=== PATIENT | female | born 1985 | race Caucasian/White ===

== ENCOUNTER 2017-02-17 05:40 | Day surgery (SDC) | payer OTHER ==
[~2017-02-17] VITALS: Ht 160 cm; Wt 72.1 kg
[2017-02-17] MEDS ORDERED: AMOX500C25 PO (06:54)
[2017-02-17] MEDS ORDERED: CLAR500T3 PO (06:57)
[2017-02-17] MEDS ORDERED: METR250T2 PO (06:58)
[2017-02-17] MEDS ORDERED: LORA-476 PO (06:59)
[2017-02-17] MEDS ORDERED: fentaNYL 0.05 MG/ML VIAL ONE (07:32)
[2017-02-17] MEDS ORDERED: LIDOCAINE VISCOUS 2% 20 ML UDC ONE (07:32)
[2017-02-17] MEDS ORDERED: MIDAZOLAM 2 MG/2 ML VIAL ONE (07:32)
--- NOTE | 2017-02-17 09:59 | NUR ---
[facility] CONSULT RECEIVED ON 02/17/[address] PROVIDED PATIENT WITH DYSPHAGIA DIET EDUCATION DISCUSSION AND HANDOUTS. RD EXPLAINED ADVANCEMENT OF DIET TO REGULAR TOLERATED. ALL QUESTIONS WERE ANSWERED. PATIENT ACKNOWLEDGED ALL EDUCATION WELL. BOBBY [address]
== END 2017-02-17 10:05 | disposition home or self-care (01) ==
LOC: MDS 05:40 → MMU 06:03 → MDS 10:05
PROVIDERS: ATTEND Internal Medicine Gastroenterology
DX: K29.60 Other gastritis without bleeding (principal); K44.9 Diaphragmatic hernia without obstruction or gangrene
CPT/HCPCS: 36415; 43239; 86677; J2250; J7030; J7120; J3010